=== PATIENT | female | born 1960 | race Caucasian/White ===

== ENCOUNTER 2022-11-11 00:05 | Day surgery (SDC) | payer OTHER, SELFPAY ==
[2022-11-04 12:43] VITALS: BMI 35.2
--- NOTE | 2022-11-10 09:40 | WPDANESEPPF ---
Anes - Initial Pre Proc Eval Procedure: Operation Date: 11/11/22 13:00 Proposed Procedures p Screening Colonoscopy - Jeremías Rodriguez MD Date/Time: 11/10/22 09:40 Surgeon: Jeremías Rodriguez MD Pre Op Diagnosis: neoplasm screening Patient Data Age: 62 Gender: F Height: 1.75 m Weight: 108 kg Allergies Allergy/AdvReac Type Severity Reaction Status Date / Time No Known Allergies Allergy Mild Verified 11/11/22 11:47 Home Medications Medication Instructions Recorded Confirmed Type hydrochlorothiazide 25 mg tablet 25 mg PO DAILY 03/06/22 11/11/22 History omeprazole 20 mg capsule,delayed 20 mg PO DAILY 03/06/22 11/11/22 History release losartan 100 mg tablet 100 mg PO DAILY 03/17/22 11/11/22 History Patient hx anesthesia problems: none Family hx anesthesia problems: none Results Review: All pre-operative results and documents have been reviewed as part of the pre-operative evaluation. [facility] Past Medical History Medical History Essential (primary) hypertension Gastro-esophageal reflux disease without esophagitis Generalized abdominal pain Obesity Pure hypercholesterolemia, unspecified Surgical History Surgical History History of dilation and curettage 2006 History of laparoscopic cholecystectomy 06/2007 History of left oophorectomy 04/2004 Family History Family History Father , age 46 of heart attack Diabetes mellitus Acute myocardial infarction Hypertension Mother , age 74 of primary peritoneal cancer No problems noted. Sibling , Pancreatic cancer, HTN No problems noted. Sibling Hypertension History of below knee amputation Social History Social History (Updated 09/15/22 @ 10:05 by Myriam Jeong MA) Smoking status: Never smoker Alcohol intake: current Alcohol use details: Socially Substance use: never Substance use type: does not use Lack of Transportation: No Lack of Food: Never True Current Housing: I Have Housing Concerned About Future Housing: No Difficulty Paying Gas/Electric Bills: No Difficulty Paying for Meds: No Currently Unemployed: YES Education: High School Diploma/GED Difficulty w/ Childcare or Family Care: No Living arrangements: alone Occupation/Education: retired Gender identity (if verbalized by the patient): Female Sexual Orientation (if Verbalized by the Patient): Straight or Heterosexual Anes - Eval Final PreProcedure Day of Procedure 11/10/22 09:40 Patient weight: obese Heart: regular rate and rhythm Lungs: clear to auscultation Airway: Mallampati scale class II Neurological: alert and oriented Last oral intake: >/= 8 hours ASA classification: III Emergent: no Anesthetic plan: proceed Anesthesia type and monitoring: general GIVS and standard monitoring Results Review: All pre-operative results and documents have been reviewed as part of the pre-operative evaluation. Informed Consent: The patient's anesthetic plan and its attendant risks and benefits were discussed with the patient/family/POA. Questions were solicited and answers provided to the satisfaction of the patient/family/POA.
[2022-11-11 11:40] VITALS: BP 165/93; PULSE 93; RESP 18; TEMP 35.7; O2SAT 97; BMI 34.0
[2022-11-11] MEDS: LACTATED RINGERS 1,000 ML 150 ML IV CONT (12:02)
--- NOTE | 2022-11-11 12:04 | PM.HPGS ---
History of Present Illness History of Present Illness Consent: Risks, benefits, and alternatives have been discussed and questions answered. Patient agrees to proceed with procedure. Chief complaint: neoplasm screening Narrative: Delmi Watson is a 62 year old female presents for screening colonoscopy. Patient's current weight appetite and bowel movements are normal. Patient denies abdominal pain. She has had no bleeding. Family history noncontributary. Patient did have screening colonoscopy 10 years ago that was unremarkable Review of Systems Review of Systems: review of systems noncontributory [facility] Past Medical History Medical History Essential (primary) hypertension Gastro-esophageal reflux disease without esophagitis Generalized abdominal pain Obesity Pure hypercholesterolemia, unspecified Surgical History Surgical History History of dilation and curettage 2006 History of laparoscopic cholecystectomy 06/2007 History of left oophorectomy 04/2004 Family History Family History Father , age 46 of heart attack Diabetes mellitus Acute myocardial infarction Hypertension Mother , age 74 of primary peritoneal cancer No problems noted. Sibling , Pancreatic cancer, HTN No problems noted. Sibling Hypertension History of below knee amputation Social History Social History (Updated 09/15/22 @ 10:05 by Myriam Jeong MA) Smoking status: Never smoker Alcohol intake: current Alcohol use details: Socially Substance use: never Substance use type: does not use Lack of Transportation: No Lack of Food: Never True Current Housing: I Have Housing Concerned About Future Housing: No Difficulty Paying Gas/Electric Bills: No Difficulty Paying for Meds: No Currently Unemployed: YES Education: High School Diploma/GED Difficulty w/ Childcare or Family Care: No Living arrangements: alone Occupation/Education: retired Gender identity (if verbalized by the patient): Female Sexual Orientation (if Verbalized by the Patient): Straight or Heterosexual Meds Home Medications and Allergies Home Medications Medication Instructions Recorded Confirmed Type hydrochlorothiazide 25 mg tablet 25 mg PO DAILY 03/06/22 11/11/22 History omeprazole 20 mg capsule,delayed 20 mg PO DAILY 03/06/22 11/11/22 History release losartan 100 mg tablet 100 mg PO DAILY 03/17/22 11/11/22 History Allergies Allergy/AdvReac Type Severity Reaction Status Date / Time No Known Allergies Allergy Mild Verified 11/11/22 11:47 Vital Signs Vital Signs - 24 hr 11/11/22 11:40 Temperature 96.2 F L Pulse Rate 93 Respiratory Rate 18 Blood Pressure 165/93 H Pulse Oximetry 97 Oxygen Delivery Room Air Exam Narrative: Physical exam reveals patient to be alert. Vital signs stable. HEENT exam is unremarkable. Patient anicteric. Lungs are clear to auscultation and percussion. Heart is without murmur or extra sounds. Abdomen bowel sounds are present soft nontender with no organomegaly. Digital external rectal exam normal. Assessment and Plan Assessment and plan (1) Encounter for screening colonoscopy: Code(s): Z12.11 - Encounter for screening for malignant neoplasm of colon Status: Acute Assessment and Plan: Patient presents for neoplasia screening colonoscopy. Further recommendations may be given after endoscopy.
[2022-11-11 13:42] VITALS: BP 121/73; PULSE 69; RESP 22; O2SAT 96
[2022-11-11 13:52] VITALS: BP 131/83; PULSE 77; RESP 16; O2SAT 96
[2022-11-11 14:02] VITALS: BP 140/82; PULSE 71; RESP 22; O2SAT 97
== END 2022-11-11 14:05 | disposition home or self-care (01) ==
PROVIDERS: PCP Family Medicine; Visit Provider Internal Medicine Gastroenterology
PROC: 0DJD8ZZ Inspection of Lower Intestinal Tract, Via Natural or Artificial Opening Endoscopic (ICD-10-PCS; CPT 45378; principal; 2022-11-11 13:00)
DX: Z12.11 Encounter for screening for malignant neoplasm of colon (principal); D12.3 Benign neoplasm of transverse colon; K64.8 Other hemorrhoids; I10 Essential (primary) hypertension; J21.9 Acute bronchiolitis, unspecified; E66.9 Obesity, unspecified; Z68.34 Body mass index [BMI] 34.0-34.9, adult
CPT/HCPCS: 45380; 88305; J2704; J7120

== ENCOUNTER 2022-12-25 10:03 | Outpatient (CLI) | payer OTHER, SELFPAY ==
--- NOTE | ~2022-12-25 | MM_ITS ---
EXAMINATION: MM screening yeni BI w rdahika HISTORY: Screening mammogram TECHNIQUE: Craniocaudal and mediolateral oblique 3-D tomosynthesis images were obtained and synthetic 2-D images were generated. CAD analysis was submitted and interpreted. COMPARISON: 01/25/2008 bilateral screening mammogram BREAST PARENCHYMAL COMPOSITION: There are scattered areas of fibroglandular density. FINDINGS: Stable mild fibroglandular asymmetry. There is no evidence of suspicious mass, calcificatio n, or architectural distortion to suggest malignancy in either breast. There has been no suspicious i nterval change. IMPRESSION: 1. No mammographic evidence of malignancy. 2. Recommend routine screening mammography in one year. BI-RADS Category 1: Negative Reviewed, dictated and finalized at location A.
== END 2022-12-25 10:04 | disposition home or self-care (01) ==
PROVIDERS: PCP Family Medicine; Visit Provider Family Medicine
DX: Z12.31 Encounter for screening mammogram for malignant neoplasm of breast (principal)
CPT/HCPCS: 77063; 77067

== ENCOUNTER 2024-01-07 12:11 | Emergency (ER) | payer OTHER, SELFPAY ==
[2024-01-07 12:19] VITALS: BP 172/99; PULSE 96; RESP 18; TEMP 36.5; O2SAT 99
[2024-01-07] MEDS: MECLIZINE HCL 25 MG TABLET PO (12:51)
--- NOTE | 2024-01-07 13:14 | ED.GENADULT ---
HPI - General Adult General Chief complaint: Nausea/Vomiting/Diarrhea Stated complaint: n/v Time Seen by Provider: 01/07/24 12:22 History of Present Illness HPI narrative: patient is a 63-year-old female who presents ER with dizziness. Episodic over last 2 days. Feels like everything is moving. Will be associated with nausea. No vomiting. No weakness in arm or leg. No slurred speech. No racing heart. Has not having sinus congestion or sore throat or cough. No muffled hearing. Has not had similar symptoms before. Related Data Home Medications Medication Instructions Recorded Confirmed omeprazole 20 mg capsule,delayed 20 mg PO DAILY 03/06/22 10/16/23 release Allergies Allergy/AdvReac Type Severity Reaction Status Date / Time No Known Allergies Allergy Mild Verified 01/07/24 12:28 Review of Systems Review of Systems: All systems reviewed & are unremarkable except as noted in HPI and below Constitutional: Constitutional: Reports no additional constitutional complaints ENT: Reports vertigo, Denies nasal congestion and Denies sore throat Cardiovascular: Cardiovascular: Reports no additional cardiovascular complaints Respiratory: Respiratory: Reports no additional respiratory complaints Neurologic: Denies focal weakness, Denies numbness and Denies weakness PMFSH Past Medical History Medical History Essential (primary) hypertension Gastro-esophageal reflux disease without esophagitis Generalized abdominal pain Obesity Personal history of colonic polyps Pure hypercholesterolemia, unspecified Surgical History Surgical History History of dilation and curettage 2006 History of laparoscopic cholecystectomy 06/2007 History of left oophorectomy 04/2004 Family History Family History Father , age 46 of heart attack Diabetes mellitus Acute myocardial infarction Hypertension Mother , age 74 of primary peritoneal cancer No problems noted. Sibling , Pancreatic cancer, HTN No problems noted. Sibling Hypertension History of below knee amputation Social History Social History (Updated 10/16/23 @ 10:21 by Myrima Jeong MA) Smoking status: Never smoker Alcohol intake: current Alcohol use details: Socially Substance use: never Substance use type: does not use Do You Feel Safe in your Home?: Yes Lack of Transportation: No Lack of Food: Never True Current Housing: I Have Housing Concerned About Future Housing: No Difficulty Paying Gas/Electric Bills: No Difficulty Paying for Meds: No Currently Unemployed: YES Education: High School Diploma/GED Difficulty w/ Childcare or Family Care: No Living arrangements: alone Occupation/Education: retired Gender identity (if verbalized by the patient): Female Sexual Orientation (if Verbalized by the Patient): Straight or Heterosexual Exam Narrative: GENERAL: Well-appearing, well-nourished, and in no acute distress. HEAD: Normocephalic, atraumatic. EYES: PERRL and EOMI. ENT: Mucous membranes moist. TM's normal. CHEST: Clear to auscultation. No respiratory distress. HEART: Regular rate and rhythm. Normal peripheral pulses. EXTREMITIES: Normal range of motion. No edema. SKIN: Warm, dry, no rash. NEURO: Alert and oriented x3. 5/5 strength in upper extremities and lower extremities. No upper extremity drift. No facial droop. Clear speech. PSYCH: Normal mood and affect. Course Vital Signs Vital signs: Vital Signs Temperature 97.7 F 01/07/24 12:19 Pulse Rate 96 01/07/24 12:19 Respiratory Rate 18 01/07/24 12:19 Blood Pressure 172/99 H 01/07/24 12:19 Pulse Oximetry 99 01/07/24 12:19 Temperature 98.1 F 01/07/24 14:30 Pulse Rate 87 01/07/24 14:30 Respiratory Rate 16 01/07/24 14:30 Blood Pressure 136/73 01/07/24 14:30 Pulse Oximetry 97 01/07/24 14:30 Medical Decision Making Vital Signs Vital Signs: Vital Signs Temperature 97.7 F 01/07/24 12:19 Pulse Rate 96 01/07/24 12:19 Respiratory Rate 18 01/07/24 12:19 Blood Pressure 172/99 H 01/07/24 12:19 Pulse Oximetry 99 01/07/24 12:19 Temperature 98.1 F 01/07/24 14:30 Pulse Rate 87 01/07/24 14:30 Respiratory Rate 16 01/07/24 14:30 Blood Pressure 136/73 01/07/24 14:30 Pulse Oximetry 97 01/07/24 14:30 Discharge Plan Discharge Clinical Impression: Vertigo Patient Disposition: Home, Self-Care Condition: Stable Instructions: Vertigo (ED) Additional Instructions: Return to the ER if you have fever over 101F, you cannot keep down food/water, or you lose consciousness. Prescriptions: New meclizine 12.5 mg tablet 12.5 mg PO TID PRN (Reason: dizziness) Qty: 14 0RF No Action omeprazole 20 mg capsule,delayed release(DR/EC) 20 mg PO DAILY losartan 100 mg tablet 100 mg PO DAILY Qty: 90 1RF hydrochlorothiazide 25 mg tablet 25 mg PO DAILY Qty: 90 1RF Follow-up/Referrals: Marciano Lance MD [Primary Care Provider] - 1 Week
[2024-01-07 14:30] VITALS: BP 136/73; PULSE 87; RESP 16; TEMP 36.7; O2SAT 97
== END 2024-01-07 15:06 | disposition home or self-care (01) ==
PROVIDERS: Emergency Provider Emergency Medicine; PCP Family Medicine
DX: R42 Dizziness and giddiness (principal); I10 Essential (primary) hypertension; E78.00 Pure hypercholesterolemia, unspecified; E66.9 Obesity, unspecified; Z68.35 Body mass index [BMI] 35.0-35.9, adult; K21.9 Gastro-esophageal reflux disease without esophagitis; Z86.0100 Personal history of colon polyps, unspecified; Z90.49 Acquired absence of other specified parts of digestive tract; Z90.721 Acquired absence of ovaries, unilateral; Z79.899 Other long term (current) drug therapy
CPT/HCPCS: 99283; A9270